=== PATIENT | male | born 1950 | race Caucasian/White ===

== ENCOUNTER → 2021-04-02 | Day surgery (SDC) | payer OTHER, MEDICARE, MEDICAID ==
[~2021-04-02] VITALS: Ht 160 cm; Wt 105.9 kg
[~2021-04-02] MED LIST: ALEN70TA65 PO; AMPICILLIN SODIUM 2 GM/NS 100 ML IV ONE; ASCO500 PO; ASPI-1450 PO; BECL10.62 IH; CALC260T16 PO; CHOL-35 PO; DEXAMETHASONE SOD PHOS 4 MG/ML VIAL IVP ONE; DOCU-350 PO; FAMO20 PO; FURO40 PO; GARL600T2 PO; IPRA4AER IH; LACT30L PO; LIDO1ADH23 TP; LIDOCAINE/PF 2% 5 ML VIAL IM ONE; LORA10TA7 PO; METR45CR9 TP; MULT-1203 PO; NYST15CR2 TP; OMEG-50 PO; OMEP20 PO; ONDANSETRON HCL 4 MG/2 ML VIAL IVP ONE; PHEN20EL10 PO; POTA8TAB71 PO; PROPOFOL 1% 20 ML VIAL IVP ONE; QUET25TA PO; RINGERS SOLUTION,LACTATED 1,000 ML IV ONE; RIVA10TA PO; ROCURONIUM BROMIDE 10 MG/ML 5 ML VIAL IVP ONE; ROCURONIUM BROMIDE 10 MG/ML 5 ML VIAL ONE; S-AD200T6 PO; SENN8.6T20 PO; SIMV-260 PO; SUGAMMADEX SODIUM 200 MG/2 ML VIAL IVP ONE; TAMS-13 PO; UBID10CA6 PO; VITA400T9 PO; ZONI100C87 PO
[2021-04-02 07:02] LABS: COVID AG,FIA SOURCE NASOPHARYNGEAL
[2021-04-02 08:23] LABS: BASOPHILS % (AUTO) 0.7 % (0.0-2.0); EOSINOPHILS % (AUTO) 2.9 % (1.0-6.0); HEMATOCRIT 41.7 % (41-53); HEMOGLOBIN 14.1 g/dL (13.5-17.5); LYMPHOCYTES # (AUTO) 0.8 K/uL (1.0-4.8); MEAN CORPUSCULAR HEMOGLOBIN 31.4 pg (26.0-34.0); MEAN CORPUSCULAR HGB CONC 33.9 G/dL (31.0-37.0); MEAN CORPUSCULAR VOLUME 93 fL (80-100); MONOCYTES # (AUTO) 0.5 K/uL (0.1-1.0); MONOCYTES % (AUTO) 11.3 % (2.0-9.0); NEUTROPHILS # (AUTO) 3.2 K/uL (1.8-7.7); NEUTROPHILS % (AUTO) 68.1 % (40.0-70.0); PLATELET COUNT (AUTO) 143 K/uL (150-450); RED CELL DISTRIBUTION WIDTH 15.4 % (11.5-14.5)
[2021-04-02 08:33] LABS: ANION GAP 5 mmol/L (8-16); CALCIUM, TOTAL 9.1 mg/dL (8.8-10.5); CARBON DIOXIDE 31 mmol/L (22-29); CHLORIDE 109 mmol/L (98-107); CREATININE 1.03 mg/dL (0.60-1.30); GLOMERULAR FILTR. RATE CALC > 60 mL/min (>60); GLUCOSE,RANDOM 94 mg/dL (70-110); POTASSIUM 4.5 mmol/L (3.5-5.1); SODIUM SERUM 145 mmol/L (136-145); UREA NITROGEN, BLOOD 23 mg/dL (7-18)
[2021-04-02 08:37] LABS: INR 1.1 (0.9-1.1); PROTHROMBIN TIME 11.9 SEC (9.4-11.6)
[2021-04-02 08:38] LABS: ALANINE AMINOTRANSFERASE 46 U/L (12-78); ALBUMIN 3.1 g/dL (3.4-5.0); ALKALINE PHOSPHATASE 98 U/L (46-116); ASPARTATE AMINOTRANSFERASE 17 U/L (15-37); BILIRUBIN,TOTAL 0.4 mg/dL (0.1-1.0)
== END | disposition home or self-care (01) ==
LOC: SURGERY 06:49
PROVIDERS: ATTEND Dentist General Practice
DX: K02.9 Dental caries, unspecified (principal); G40.909 Epilepsy, unspecified, not intractable, without status epilepticus; K05.30 Chronic periodontitis, unspecified; K21.9 Gastro-esophageal reflux disease without esophagitis; K03.6 Deposits [accretions] on teeth; J45.909 Unspecified asthma, uncomplicated; I10 Essential (primary) hypertension; Z88.8 Allergy status to other drugs, medicaments and biological substances; E78.00 Pure hypercholesterolemia, unspecified; Z79.82 Long term (current) use of aspirin; Z98.890 Other specified postprocedural states; Z79.899 Other long term (current) drug therapy; Z79.01 Long term (current) use of anticoagulants; Z85.72 Personal history of non-Hodgkin lymphomas
CPT/HCPCS: 36415; 41899; 71045; 80053; 85025; 85610; 85730; 87426; 93005; C9803; J0290; J1100; J2405; J2704; J3490 ×2; Q9967

== ENCOUNTER 2023-06-16 06:07 | Day surgery (SDC) | payer OTHER, MEDICARE, MEDICAID ==
[~2023-06-16] VITALS: Ht 154.9 cm; Wt 104.5 kg
[~2023-06-16 06:07] MED LIST changes: -AMPICILLIN SODIUM 2 GM/NS 100 ML IV ONE; -CHOL-35 PO; +CHOL25TA4 PO; -DEXAMETHASONE SOD PHOS 4 MG/ML VIAL IVP ONE; -DOCU-350 PO; +DOCU-412 PO; +LACT10SO10 PO; -LACT30L PO; -LIDOCAINE/PF 2% 5 ML VIAL IM ONE; -NYST15CR2 TP; +NYST15CR41 TP; +OMEG-126 PO; -OMEG-50 PO; -ONDANSETRON HCL 4 MG/2 ML VIAL IVP ONE; -PHEN20EL10 PO; +PHEN20EL24 PO; -PROPOFOL 1% 20 ML VIAL IVP ONE; -RINGERS SOLUTION,LACTATED 1,000 ML IV ONE; -ROCURONIUM BROMIDE 10 MG/ML 5 ML VIAL IVP ONE; -ROCURONIUM BROMIDE 10 MG/ML 5 ML VIAL ONE; -S-AD200T6 PO; +S-AD200T8 PO; -SUGAMMADEX SODIUM 200 MG/2 ML VIAL IVP ONE; -TAMS-13 PO; +TAMS0.4C94 PO
[2023-06-16] MEDS ORDERED: ONDANSETRON HCL 4 MG/2 ML VIAL IVP ONE (06:08)
[2023-06-16] MEDS ORDERED: LIDOCAINE/PF 2% 5 ML SYRINGE IVP ONE (06:08)
[2023-06-16] MEDS ORDERED: PROPOFOL 1% 20 ML VIAL IVP ONE (06:08)
[2023-06-16] MEDS ORDERED: SUGAMMADEX SODIUM 200 MG/2 ML VIAL IVP ONE (06:08)
[2023-06-16] MEDS ORDERED: DEXAMETHASONE SOD PHOS 4 MG/ML VIAL IVP ONE (06:08)
[2023-06-16] MEDS ORDERED: ROCURONIUM BROMIDE 10 MG/ML 5 ML VIAL IVP ONE (06:08)
[2023-06-16] MEDS ORDERED: ESMOLOL HCL 10 MG/ML 10 ML VIAL IVP ONE (06:08)
[2023-06-16 08:05] LABS: BASOPHILS % (AUTO) 0.6 % (0.0-2.0); EOSINOPHILS % (AUTO) 3.7 % (1.0-6.0); HEMATOCRIT 43.3 % (41-53); HEMOGLOBIN 14.6 g/dL (13.5-17.5); LYMPHOCYTES # (AUTO) 1.3 K/uL (1.0-4.8); LYMPHOCYTES % (AUTO) 19.7 % (22.0-44.0); MEAN CORPUSCULAR HEMOGLOBIN 31.9 pg (26.0-34.0); MEAN CORPUSCULAR HGB CONC 33.7 G/dL (31.0-37.0); MEAN CORPUSCULAR VOLUME 95 fL (80-100); MONOCYTES # (AUTO) 0.7 K/uL (0.1-1.0); MONOCYTES % (AUTO) 10.1 % (2.0-9.0); NEUTROPHILS # (AUTO) 4.4 K/uL (1.8-7.7); NEUTROPHILS % (AUTO) 65.9 % (40.0-70.0); PLATELET COUNT (AUTO) 190 K/uL (150-450); RED BLOOD CELL COUNT(AUTO) 4.57 MIL/uL (4.50-5.90); RED CELL DISTRIBUTION WIDTH 15.3 % (11.5-14.5); WHITE BLOOD COUNT (AUTO) 6.8 K/uL (4.5-11.0)
[2023-06-16] MEDS ORDERED: AMPICILLIN SODIUM 2 GM/NS 100 ML IV ONE ×2 (08:05→11:41)
[2023-06-16] MEDS ORDERED: RINGERS SOLUTION,LACTATED 1,000 ML IV ONE (08:07)
[2023-06-16 08:12] LABS: INR 1.1 (0.9-1.1); PROTHROMBIN TIME 11.6 SEC (9.4-11.6)
[2023-06-16 08:34] LABS: ANION GAP 11 mmol/L (8-16); CALCIUM, TOTAL 9.5 mg/dL (8.8-10.5); CARBON DIOXIDE 26 mmol/L (22-29); CHLORIDE 106 mmol/L (98-107); CREATININE 1.01 mg/dL (0.60-1.30); GLOMERULAR FILTR. RATE CALC > 60 mL/min (>60); GLUCOSE,RANDOM 105 mg/dL (70-110); POTASSIUM 3.6 mmol/L (3.5-5.1); SODIUM SERUM 143 mmol/L (136-145); UREA NITROGEN, BLOOD 25 mg/dL (7-18)
[2023-06-16] MEDS ORDERED: OMEG-135 PO (08:37)
[2023-06-16 08:40] LABS: ALANINE AMINOTRANSFERASE 24 U/L (12-78); ALKALINE PHOSPHATASE 99 U/L (46-116); ASPARTATE AMINOTRANSFERASE 16 U/L (15-37); BILIRUBIN,TOTAL 0.4 mg/dL (0.1-1.0)
[2023-06-16] MEDS ORDERED: IPRA3AMP24 NEB (08:51)
[2023-06-16] MEDS ORDERED: CYAN-11 IM (08:51)
[2023-06-16] MEDS ORDERED: TURM500C4 PO (08:51)
[2023-06-16] MEDS ORDERED: S ADENOSYLMETHIONINE PO (08:51)
[2023-06-16] MEDS ORDERED: CYAN500T77 PO (08:51)
[2023-06-16] MEDS ORDERED: ALBU18HF12 IH (08:51)
[2023-06-16] MEDS ORDERED: MAGN400T57 PO (08:51)
[2023-06-16] MEDS ORDERED: CALC-613 PO (08:51)
[2023-06-16] MEDS ORDERED: LACT1CAP65 PO (08:51)
[2023-06-16] MEDS ORDERED: DIPH-1130 PO (08:51)
[2023-06-16] MEDS ORDERED: ZINC220T4 PO (08:51)
[2023-06-16] MEDS ORDERED: FLUT16SP NASAL (08:51)
[2023-06-16] MEDS ORDERED: SERT-158 PO (08:51)
[2023-06-16] MEDS: RINGERS SOLUTION,LACTATED 1,000 ML IV ONE (11:44)
[2023-06-16] MEDS ORDERED: FentaNYL CITRATE PF 100 MCG/2 ML VIAL IVP PRN (12:45)
[2023-06-16] MEDS ORDERED: OXYGEN THERAPY IH SCH (20:00)
== END 2023-06-16 17:45 | disposition home or self-care (01) ==
LOC: SURGERY 06:07
PROVIDERS: ATTEND Dentist General Practice
DX: K05.30 Chronic periodontitis, unspecified (principal); K02.9 Dental caries, unspecified; K03.6 Deposits [accretions] on teeth; I11.9 Hypertensive heart disease without heart failure; J44.9 Chronic obstructive pulmonary disease, unspecified; N40.0 Benign prostatic hyperplasia without lower urinary tract symptoms; F32.9 Major depressive disorder, single episode, unspecified; Z87.820 Personal history of traumatic brain injury; Z88.8 Allergy status to other drugs, medicaments and biological substances
CPT/HCPCS: 80053; 85025; 85610; 85730; 36415; 93005; 71045; 41899; J0290; J2704; J1100; J3490 ×3; J2405; Q9967; J7120